=== PATIENT | female | born 1985 | race Caucasian/White ===

== ENCOUNTER 2018-09-08 18:24 | Emergency (ER) | payer MEDICAID ==
[~2018-09-08] VITALS: Ht 170.2 cm; Wt 81.6 kg
[2018-09-08 18:25] VITALS: BP_SYST 133
--- NOTE | 2018-09-08 18:25 | NUR ---
Patient triaged and placed in waiting room. VSS and patient appears in no acute distress at this time. Accompanied by SELF, awaiting available bed, and MD notified of need for MSE.
--- NOTE | 2018-09-08 19:27 | NUR ---
Pt ambulatory to bed 8 for evaluation
--- NOTE | 2018-09-08 19:32 | NUR ---
Bayron ledesma in ED - 09/08/18 at 1933 by SUN Patient to [facility] to [facility] for evaluation. Side rails up.
--- NOTE | 2018-09-08 19:34 | NUR ---
Patient to ER bed HALLWAY 1 to gown for evaluation. Side rails up.
--- NOTE | 2018-09-08 19:34 | NUR ---
ER AMARI Nunez at bedside examining patient.
--- NOTE | 2018-09-08 19:35 | NUR ---
Pt came to the ED post jamming hand while reaching for something 2 days prior to coming into the ED. Pt reports that she hit her finger against something today and felt 10/10 pain which prompted her to come into the ED. Denies n/v/d or fever .No other complaints/injuries noted. Will cont. to monitor.
[2018-09-08] MEDS ORDERED: LIDOCAINE 1% 10 MG/ML, 20 ML MDV INJ ONE (19:45)
[2018-09-08] MEDS ORDERED: SODIUM BICARBONATE 8.4% VIAL 50 MEQ/50 ML VIAL INJ ONE (19:45)
--- NOTE | 2018-09-08 19:51 | NUR ---
Pt moved to ER BED 1 for procedure
--- NOTE | 2018-09-08 19:55 | NUR ---
Acacia Nunez at bedside performing procedure. Tolerated well. WIll cont. to monitor.
--- NOTE | 2018-09-08 20:08 | NUR ---
Bayron ledesam in ED - 09/08/18 at 2008 by SDEDAFJ liliam at bedside
--- NOTE | 2018-09-08 20:09 | NUR ---
xray at bedside
[2018-09-08] MEDS ORDERED: ACETAMINOPHEN 500 MG TABLET PO ONE (20:15)
[2018-09-08] MEDS ORDERED: BACITRACIN 1 GM OINT TP ONE (20:46)
[2018-09-08 20:55] VITALS: BP_SYST 133
--- NOTE | 2018-09-08 20:55 | NUR ---
Patient given written and verbal discharge instructions and verbalizes understanding. ER [employer] Acacia Nunez discussed with patient the results and treatment provided. Patient in stable condition. ID arm band removed. Rx of tylenol and bacitracin given. Patient educated on pain management and to follow up with PMD. Pain Scale 2/10. tolerable for pt. Pt able to ambulate with steady gait. No signs of acute distress. Opportunity for questions provided and answered. Medication side effect fact sheet provided.
== END 2018-09-08 20:55 | disposition home or self-care (01) ==
LOC: SED 18:24
DX: S61.102A Unspecified open wound of left thumb with damage to nail, initial encounter (principal); R03.0 Elevated blood-pressure reading, without diagnosis of hypertension; W22.8XXA Striking against or struck by other objects, initial encounter; Y93.89 Activity, other specified; Y92.89 Other specified places as the place of occurrence of the external cause; Y99.8 Other external cause status
CPT/HCPCS: 11730; 73140; 99283; J2001

== ENCOUNTER 2021-10-10 00:29 | Emergency (ER) | payer MEDICAID ==
[~2021-10-10] VITALS: Ht 170.2 cm; Wt 127.0 kg
--- NOTE | 2021-10-10 00:37 | NUR ---
Patient to [facility] for evaluation. Side rails up. Report given to BEATRIZ SMITH(AKOSUA).
[2021-10-10 00:38] VITALS: BP_SYST 164
--- NOTE | 2021-10-10 00:45 | NUR ---
Pt to ER w/ c/o left knee pain 11/26 and "painful ambulation and difficulty bearing weight. Pt ambulated into ER independently with steady gait and without assistance from assistive devices. Pt denies trauma. Pt denies falls.
--- NOTE | 2021-10-10 00:50 | NUR ---
MD Trevizo assesing patient and speaking to patient at this time.
[2021-10-10] MEDS ORDERED: KETOROLAC TROMETHAMINE 30 MG VIAL IM ONE (01:00)
--- NOTE | 2021-10-10 01:53 | NUR ---
Pt resting in bed 7 at this time with HOB flat per pt request. Respirations even and unlabored. Pt states "my knee is still hurting really bad". Pain 09/26. MD made aware. MD also informed of patient driving self home.
--- NOTE | 2021-10-10 02:02 | NUR ---
Pt informed me at this time sister will be driving her home. made aware.
[2021-10-10] MEDS ORDERED: NAPR-1172 PO (02:09)
[2021-10-10] MEDS ORDERED: HYDR-3921 PO (02:09)
[2021-10-10] MEDS ORDERED: HYDROcodone/ACETAMIN 7.5-325 MG TAB PO ONE (02:15)
[2021-10-10] MEDS ORDERED: HYDROcodone/ACETAMIN 7.5-325 MG TAB ONE (02:21)
--- NOTE | 2021-10-10 02:28 | NUR ---
Patient given written and verbal discharge instructions and verbalizes understanding. ER MD discussed with patient the results and treatment provided. Patient in stable condition. ID arm band removed. Rx of Naproxen and [place] given. Patient educated on pain management and to follow up with PMD. Pain Scale 7/10. Opportunity for questions provided and answered. Medication side effect fact sheet provided.
[2021-10-10 02:31] VITALS: BP_SYST 155
== END 2021-10-10 02:31 | disposition home or self-care (01) ==
LOC: SED 00:29
DX: M17.12 Unilateral primary osteoarthritis, left knee (principal); M25.562 Pain in left knee; J45.909 Unspecified asthma, uncomplicated; Z79.899 Other long term (current) drug therapy
CPT/HCPCS: 99283; 73564; 96372; J1885